=== PATIENT | male | born 1985 | race Caucasian/White ===

== ENCOUNTER 2022-03-11 19:31 | Emergency (ER) | payer OTHER, SELFPAY ==
[2022-03-11 19:36] VITALS: BP 161/107; PULSE 108; RESP 14; TEMP 36.9; O2SAT 100
--- NOTE | 2022-03-11 19:49 | ED.DENTAL ---
HPI - Dental/Oral General Chief complaint: Dental/Oral Stated complaint: Toothache/Ear Pain Time Seen by Provider: 03/11/22 19:42 Source: patient and RN notes reviewed Mode of arrival: ambulatory Limitations: no limitations History of Present Illness HPI Narrative: Patient presents today complaint of a 2-week history of left lower dental pain, worse over the last 1 week with left ear pain. States his filling fell out 6 months ago after he fractured a tooth. Currently rates his pain 10/10 and has been taking Tylenol and ibuprofen with mild relief. He has also been flushing his left ear out with hand photo printer and hydrogen peroxide. No recent antibiotic use. States he does not have a dentist. MD Complaint: tooth pain Related Data Allergies Allergy/AdvReac Type Severity Reaction Status Date / Time No Known Allergies Allergy Verified 03/11/22 19:43 Review of Systems Review of Systems: CONSTITUTIONAL: Denies body aches, fever, chills, or sweats. EYES: Denies visual changes, redness, or discharge. ENT: Denies rhinorrhea, congestion, sore throat.+ Tooth pain, left ear pain CARDIOVASCULAR: Denies chest pain, palpitations, or edema. RESPIRATORY: Denies cough or dyspnea. GASTROINTESTINAL: Denies abdominal pain, nausea, vomiting, or diarrhea. GENITOURINARY: Denies dysuria or hematuria. SKIN: Denies rash, itching, or wounds. MUSCULOSKELETAL: Denies back pain, joint pain, or myalgia. NEUROLOGIC: Denies headache, numbness, tingling, or weakness. PSYCH: Denies depression or anxiety. PMFSH Comments At time of signature, I have reviewed and agree with nursing past medical, surgical, social and family history unless otherwise noted. Please see nursing chart for further information. There is no relevant family history pertinent to the presenting complaint Exam Narrative: GENERAL: Well-appearing, well-nourished, and in no acute distress. HEAD: Normocephalic, atraumatic. EYES: EOMI. No redness or drainage. Conjunctivae normal. ENT: Mucous membranes pink and moist. Nares clear. No rhinorrhea. TMs normal bilaterally. Left ear canal is erythematous. Throat normal. Uvula midline. Lateral half of tooth #19 is absent. No swelling of the face or gingiva noted. No obvious periapical abscess noted. NECK: Normal AROM. Supple. No lymphadenopathy. CHEST: No respiratory distress. EXTREMITIES: Normal range of motion. No edema. SKIN: Warm, dry, no rash. Capillary refill normal. Normal skin turgor. NEURO: No focal deficits. Alert and oriented x3. Gait steady. PSYCH: Normal affect. No signs of depression or anxiety. Course Course Level of Care: Express Care Visit Vital Signs Vital signs: Vital Signs Temperature 98.5 F 03/11/22 19:36 Pulse Rate 108 H 03/11/22 19:36 Respiratory Rate 14 03/11/22 19:36 Blood Pressure 161/107 H 03/11/22 19:36 Pulse Oximetry 100 03/11/22 19:36 Temperature 98.5 F 03/11/22 19:36 Pulse Rate 108 H 03/11/22 19:36 Respiratory Rate 14 03/11/22 19:36 Blood Pressure 161/107 H 03/11/22 19:36 Pulse Oximetry 100 03/11/22 19:36 Reviewed. Pt has been instructed to follow up with his PCP regarding his elevated blood pressure today. MDM - Dental/Oral Differential Diagnosis Differential diagnosis: Likely gingival abscess, dental caries, toothache, dental abscess and fracture of tooth Critical Care Time Critical Care Time Critical Care Time: No Discharge Plan Discharge Clinical Impression: Infected dental caries Patient Disposition: Home, Self-Care Condition: Stable Instructions: Antibiotic Form, Dental Abscess (ED) Additional Instructions: Take the amoxicillin as prescribed until gone. Continue Tylenol or ibuprofen at home for pain. Follow-up with the dentist as soon as possible. Your blood pressure was elevated above 120/80 today at Urgent Care. This puts you above the threshold for follow up. Please schedule a followup visit with your personal physician as soon a
== END 2022-03-11 19:55 | disposition home or self-care (01) ==
PROVIDERS: Emergency Provider Nurse Practitioner
DX: K04.7 Periapical abscess without sinus (principal)
CPT/HCPCS: 99203; G0463

== ENCOUNTER 2022-03-17 19:12 | Emergency (ER) | payer OTHER, SELFPAY ==
[2022-03-17 19:25] VITALS: BP 155/109; PULSE 89; RESP 20; TEMP 36.1; O2SAT 100
--- NOTE | 2022-03-17 19:51 | ED.GENADULT ---
HPI - General Adult General Chief complaint: Dental/Oral Stated complaint: ear/jaw pain Related Data Allergies Allergy/AdvReac Type Severity Reaction Status Date / Time No Known Allergies Allergy Verified 03/17/22 19:37 Course Vital Signs Vital signs: Vital Signs Temperature 97.0 F L 03/17/22 19:25 Pulse Rate 89 03/17/22 19:25 Respiratory Rate 20 03/17/22 19:25 Blood Pressure 155/109 H 03/17/22 19:25 Pulse Oximetry 100 03/17/22 19:25 Temperature 97.0 F L 03/17/22 19:25 Pulse Rate 89 03/17/22 19:25 Respiratory Rate 20 03/17/22 19:25 Blood Pressure 155/109 H 03/17/22 19:25 Pulse Oximetry 100 03/17/22 19:25 Medical Decision Making Vital Signs Vital Signs: Vital Signs Temperature 97.0 F L 03/17/22 19:25 Pulse Rate 89 03/17/22 19:25 Respiratory Rate 20 03/17/22 19:25 Blood Pressure 155/109 H 03/17/22 19:25 Pulse Oximetry 100 03/17/22 19:25 Temperature 97.0 F L 03/17/22 19:25 Pulse Rate 89 03/17/22 19:25 Respiratory Rate 20 03/17/22 19:25 Blood Pressure 155/109 H 03/17/22 19:25 Pulse Oximetry 100 03/17/22 19:25 Discharge Plan Discharge Clinical Impression: Dental abscess Patient Disposition: Home, Self-Care Condition: Stable Instructions: Antibiotic Form, Dental Abscess (ED) Additional Instructions: Please return for any new, concerning or worsening symptoms. Prescriptions: New amoxicillin-pot clavulanate [Augmentin] 500-125 mg tablet 1 tablet PO Q8H 5 Days Qty: 15 RF: 0 hydrocodone-acetaminophen 5-325 mg tablet 1 tablet PO Q8H PRN (Reason: pain) Qty: 10 RF: 0 No Action amoxicillin 875 mg tablet 875 mg PO Q12H 10 Days Qty: 20 RF: 0 Follow-up/Referrals: UNKNOWN,DOCTOR [Primary Care Provider] - Stand Alone Forms: Work/School Release IP
[2022-03-17] MEDS: LIDOCAINE HCL 1% LOCAL INJ 20 ML VIAL INFILTRATE (20:00)
[2022-03-17] MEDS: MAG HYDROX/ALUMINUM HYD/SIMETH 30 ML, PHENobarb/HYOSCY/ATROPINE/SCOP 32.4 MG, LIDOCAINE... PO (20:15)
[2022-03-17] MEDS: LORazepam INJ (*CRX) 2 MG/ML VIAL 1 MG IM (20:16)
[2022-03-17 20:25] VITALS: BP 160/100; PULSE 112; RESP 20; O2SAT 100
--- NOTE | 2022-03-17 20:38 | ED.GENADULT ---
HPI - General Adult General Chief complaint: Dental/Oral Stated complaint: ear/jaw pain Source: patient and family Mode of arrival: ambulatory History of Present Illness HPI narrative: Daniel is a previously healthy 36M that presented to the emergency department with dental pain. He has had pain in his left lower jaw for 8 days that has been getting worse. It is a sharp pain that radiates to his chin, jaw and ear. It is better with ice cold water. He tried to fill it at home but it became worse. He has not tried OTC meds or any OTC gel. He went to urgent care a few days ago and was started on amoxicillin with little effect. There has been no fevers,chills, N/V, dysphagia or trouble breathing. Related Data Allergies Allergy/AdvReac Type Severity Reaction Status Date / Time No Known Allergies Allergy Verified 03/17/22 19:37 Review of Systems Constitutional: Constitutional: Reports no additional constitutional complaints Eyes: Eyes: Reports no additional eye complaints ENT: Reports as per HPI Cardiovascular: Cardiovascular: Reports no additional cardiovascular complaints Respiratory: Respiratory: Reports no additional respiratory complaints Gastrointestinal: Gastrointestinal: Reports no additional gastrointestinal complaints Genitourinary: Genitourinary: Reports no additional male genitourinary complaints Musculoskeletal: Musculoskeletal: Reports no additional musculoskeletal complaints Integumentary/Breasts: Skin/Breast: Reports system reviewed and no additional complaints, except as docu Neurologic: Reports system reviewed and no additional complaints, except as documented Psychiatric: Psychiatric: Reports no additional psychiatric complaints Endocrine: Endocrine: Reports no additional endocrine complaints Hematologic/Lymphatic: Hematologic/Lymphatic: Reports no additional hematologic/lymphatic complaints Allergic/Immunologic: Allergic/Immunologic: Reports no additional allergic/immunologic complaints Exam Const: General: alert Orientation/consciousness: patient oriented x3 Limitations: No altered mental status Other: He waxed and waned between no distress and a few fleeting moments of moderate distress HENMT: Head: normal to inspection Other: Left inferior molars were cracked and the surrounding periodontal tissue was swollen, erythematous and very TTP. There was a hard irregular white paste on one of the left inferior molars. There was some left submandibular lymphadenopathy and anterior cervical lymphadenopathy Eyes: Conjunctivae: conjunctivae normal Pupils: Equal, round and reactive pupils present Neck: Neck: normal visual inspection Chest: Chest palpation & inspection: normal inspection of the chest Resp: Effort & Inspection: normal respiratory effort, not labored and not tachypneic Cardio: Rate: regular rate Skin: General skin exam: normal color Rashes: no rashes Neuro: General: patient oriented x3 and moves all extremities Extrem: General: normal to inspection Psych: Affect: Anxious affect present Course Course Emergency Course: A dental block was performed which brought some decreased pain around the tooth but not the jaw/chin. His antibiotic was switched to Augmentin for extended spectrum. Script sent for [place]. The importance of seeing a dentist was emphasized. Vital Signs Vital signs: Vital Signs Temperature 97.0 F L 03/17/22 19:25 Pulse Rate 89 03/17/22 19:25 Respiratory Rate 20 03/17/22 19:25 Blood Pressure 155/109 H 03/17/22 19:25 Pulse Oximetry 100 03/17/22 19:25 Temperature 97.0 F L 03/17/22 19:25 Pulse Rate 89 03/17/22 19:25 Respiratory Rate 20 03/17/22 19:25 Blood Pressure 155/109 H 03/17/22 19:25 Pulse Oximetry 100 03/17/22 19:25 Procedures Nerve Block Nerve Block 1: Nerve block date: 03/17/22 Local Anesthetic: lidocaine 1% Amount of anesthesia used (mL): 1 Side: left Intraoral Nerve Block: i
== END 2022-03-17 20:30 | disposition home or self-care (01) ==
PROVIDERS: Emergency Provider Family Medicine
DX: K04.7 Periapical abscess without sinus (principal)
CPT/HCPCS: 64400; 96372; 99283; J2060

== ENCOUNTER 2024-06-22 14:49 | Emergency (ER) | payer OTHER, SELFPAY ==
[2024-06-22 14:59] VITALS: BP 133/84; PULSE 81; RESP 20; TEMP 37.6; O2SAT 98
--- NOTE | 2024-06-22 15:14 | ED.GENADULT ---
HPI - General Adult General Chief complaint: Upper Respiratory Infection Stated complaint: lungs are hurting Source: patient Mode of arrival: ambulatory Limitations: no limitations History of Present Illness HPI narrative: Patient presents for evaluation of sick symptoms for last 5 days. Symptoms include cough, dyspnea on exertion, low-grade fever, diarrhea and a raw sensation in his throat. No chills, nausea or vomiting. No recent sick contacts to his knowledge. He does use an electric cigarette. He has been taking Mucinex and cough drops for his symptoms. Related Data Allergies Allergy/AdvReac Type Severity Reaction Status Date / Time No Known Allergies Allergy Verified 03/17/22 19:37 Review of Systems Review of Systems: CONSTITUTIONAL: Reports fever. Denies chills, or sweats. EYES: Denies visual changes, redness, or discharge. ENT: Reports raw sensation in the throat. Denies rhinorrhea, congestion, or otalgia. CARDIOVASCULAR: Denies chest pain, palpitations, or edema. RESPIRATORY: Reports cough and dyspnea on exertion GASTROINTESTINAL: Reports diarrhea. Denies abdominal pain, nausea, and vomiting GENITOURINARY: Denies dysuria or hematuria. SKIN: Denies rash or itching. MUSCULOSKELETAL: Denies back pain, joint pain, or myalgia. NEUROLOGIC: Denies headache, numbness, dizziness, or weakness. PSYCHIATRIC: Denies anxiety or depression. PMFSH Past Medical History Medical History Diarrhea Surgical History Surgical History No pertinent past surgical history Family History Family History Mother Family history non-contributory Social History Social History Smoking status: Current every day smoker Tobacco type: e-cigarettes/vaping Gender identity (if verbalized by the patient): Male Spiritual care concerns: No Exam Narrative: GENERAL: Well-appearing, well-nourished, and in no acute distress. HEAD: Normocephalic, atraumatic. EYES: PERRLA and EOMI. ENT: Nares clear, no rhinorrhea or epistaxis. Mucous membranes moist. Oropharynx without tonsillar hypertrophy exudate or other lesions. Bilateral TMs pearly daugherty nonbulging NECK: Supple. No adenopathy or masses. No carotid bruits or JVD CHEST: Clear to auscultation. No respiratory distress. No wheezes rales or rhonchi HEART: Regular rate and rhythm. No murmur heard. Normal peripheral pulses. ABDOMEN: Soft, nontender, nondistended, normal active bowel sounds. EXTREMITIES: Normal range of motion. No edema. SKIN: Warm, dry, no rash. NEURO: No focal deficits. Alert and oriented x3. PSYCH: Normal mood and affect. Course Course Emergency Course: This is a 38-year-old male who presents today for evaluation of sick symptoms. COVID and flu test were negative. Exam is consistent with acute viral syndrome. Will DC with Tessalon, albuterol and Lomotil. Increase hydration. Follow up with primary provider. Go to the ER for worsening symptoms. Patient in agreement with plan of care. Level of Care: Express Care Visit Vital Signs Vital signs: Vital Signs Temperature 37.6 C 06/22/24 14:59 Pulse Rate 81 06/22/24 14:59 Respiratory Rate 20 06/22/24 14:59 Blood Pressure 133/84 06/22/24 14:59 Pulse Oximetry 98 06/22/24 14:59 Oxygen Delivery Room Air 06/22/24 14:59 Temperature 37.6 C 06/22/24 14:59 Pulse Rate 81 06/22/24 14:59 Respiratory Rate 20 06/22/24 14:59 Blood Pressure 133/84 06/22/24 14:59 Pulse Oximetry 98 06/22/24 14:59 Oxygen Delivery Room Air 06/22/24 14:59 Medical Decision Making Vital Signs Vital Signs: Vital Signs Temperature 37.6 C 06/22/24 14:59 Pulse Rate 81 06/22/24 14:59 Respiratory Rate 20 06/22/24 14:59 Blood Pressure 133
[2024-06-22 15:45] LABS: EDINFLUASCREEN Negative; EDINFLUBSCREEN Negative
== END 2024-06-22 16:07 | disposition home or self-care (01) ==
PROVIDERS: Emergency Provider Nurse Practitioner
DX: B34.9 Viral infection, unspecified (principal); Z20.822 Contact with and (suspected) exposure to COVID-19; F17.290 Nicotine dependence, other tobacco product, uncomplicated
CPT/HCPCS: 87426; 87804; 99213; G0463